=== PATIENT | male | born 1960 | race African-American/Black ===

== ENCOUNTER 2018-05-02 08:34 | Emergency (ER) | payer SELFPAY ==
[2018-05-02 08:41] VITALS: BP 132/74; PULSE 71; TEMP 97.5; BMI 35.9
--- NOTE | 2018-05-02 08:56 | PDOC ---
History of Present Illness - General Chief Complaint: Ear Problem Stated Complaint: EAR PROBLEM Time Seen by Provider: 05/02/18 08:47 History Source: Patient Exam Limitations: No Limitations - History of Present Illness Initial Comments: 05/02/18 08:51 57 yr male with right ear pain for one week. no URI symptoms, pt admits to suing ear buds and headphones frequently. no fever no sore throat no direct trauma. Past History - Past Medical History Allergies/Adverse Reactions: Allergies Allergy/AdvReac Type Severity Reaction Status Date / Time No Known Allergies Allergy Verified 05/02/18 08:36 Home Medications: Ambulatory Orders metFORMIN HCL [Metformin HCl] 500 mg PO BID 07/02/15 Acetic Acid 2% Otic Soln [Vosol 2% Ear Drops -] 3 drop AD Q6H #1 bottle COPD: No Diabetes: Yes (NIDM) - Suicide/Smoking/Psychosocial Hx Smoking History: Never smoked Have you smoked in the past 12 months: No Hx Alcohol Use: No Drug/Substance Use Hx: No Substance Use Type: None *Physical Exam - Vital Signs Last Vital Signs Temp Pulse Resp BP Pulse Ox 97.5 F L 71 16 132/74 98 05/02/18 08:36 05/02/18 08:36 05/02/18 08:36 05/02/18 08:36 05/02/18 08:36 - Physical Exam General Appearance: Yes: Nourished, Appropriately Dressed HEENT: positive: EOMI, KENY, Pharynx Normal, TM Erythema (right neg mastoid tenderness, neg painful tragus, no discharge no lymphadenopathy) Neck: positive: Supple. negative: Tender Respiratory/Chest: positive: Lungs Clear, Normal Breath Sounds. negative: Chest Tender Cardiovascular: positive: Regular Rhythm, Regular Rate Musculoskeletal: positive: Normal Inspection Extremity: positive: Normal Capillary Refill, Normal Inspection, Normal Range of Motion Integumentary: positive: Normal Color, Dry, Warm Neurologic: positive: Fully Oriented, Alert, Normal Mood/Affect, Normal Response , Motor Strength 5/5 Medical Decision Making - Medical Decision Making 05/03/18 12:19 cc: right ear pain for one week pt has history of frequent cerumen impactions no fever no sore throat right ear with excoriated external canal , mild redness, no drainage or TM perforation , some cerumen blocking the canal *DC/Admit/Observation/Transfer Diagnosis at time of Disposition: Otalgia, right ear - Discharge Dispostion Disposition: HOME Condition at time of disposition: Good - Prescriptions Prescriptions: Acetic Acid 2% Otic Soln [Vosol 2% Ear Drops -] 3 drop AD Q6H #1 bottle - Referrals Referrals: Ananda Carvajal MD [Staff Physician] - - Patient Instructions Additional Instructions: follow with the ENT doctors listed below use the drops as prescribed take ibuprofen for pain as needed - Post Discharge Activity
[2018-05-02] MEDS ORDERED: IBUPROFEN 400 MG TABLET (FP) PO ONE (08:57)
[2018-05-02] MEDS ORDERED: IBUPROFEN 600 MG TABLET (FP) PO ONE (08:57)
== END 2018-05-02 09:11 | disposition home or self-care (01) ==
LOC: JERFT 08:34
DX: H92.01 Otalgia, right ear (principal); E11.9 Type 2 diabetes mellitus without complications; Z79.84 Long term (current) use of oral hypoglycemic drugs
CPT/HCPCS: 99281-25

== ENCOUNTER 2019-01-28 18:25 | Emergency (ER) | payer OTHER ==
[2019-01-28 18:34] VITALS: BP 119/75; PULSE 66; TEMP 98.2; BMI 35.2
[2019-01-28] MEDS ORDERED: IBUPROFEN 600 MG TABLET (FP) PO ONE ×2 (19:06→19:16)
--- NOTE | 2019-01-28 19:32 | PDOC ---
History of Present Illness - General Chief Complaint: Pain, Acute Stated Complaint: PAIN Time Seen by Provider: 01/28/19 18:43 History Source: Patient Exam Limitations: No Limitations Past History - Past Medical History Allergies/Adverse Reactions: Allergies Allergy/AdvReac Type Severity Reaction Status Date / Time No Known Allergies Allergy Verified 01/28/19 18:31 Home Medications: Ambulatory Orders metFORMIN HCL [Metformin HCl] 500 mg PO BID 07/02/15 Acetic Acid 2% Otic Soln [Vosol 2% Ear Drops -] 3 drop AD Q6H #1 bottle COPD: No Diabetes: Yes (NIDM) - Suicide/Smoking/Psychosocial Hx Smoking History: Never smoked Have you smoked in the past 12 months: No Hx Alcohol Use: No Drug/Substance Use Hx: No Substance Use Type: None *Physical Exam - Vital Signs Last Vital Signs Temp Pulse Resp BP Pulse Ox 98.2 F 66 18 119/75 100 01/28/19 18:32 01/28/19 18:32 01/28/19 18:32 01/28/19 18:32 01/28/19 18:32 - Physical Exam General Appearance: No: Apparent Distress Gastrointestinal/Abdominal: positive: Normal Bowel Sounds, Soft. negative: Tender, Distended, Guarding, Rebound Musculoskeletal: negative: Decreased Range of Motion, Muscle Spasm, Vertebral Tenderness Extremity: positive: Normal Inspection, Normal Range of Motion, Other (FROM of L hip and L knee, no swelling, normal gait, no swelling or ecchymosis noted along L thigh, no skin color changes). negative: Coldness, Cyanosis Integumentary: positive: Normal Color. negative: Swelling, Ecchymosis, Bruising Neurologic: positive: Alert, Normal Mood/Affect ED Treatment Course - Medications Given in the ED: ED Medications Discontinued Medications Generic Name Dose Route Start Last Admin Trade Name Freq PRN Reason Stop Dose Admin Ibuprofen 600 mg 01/28/19 19:06 01/28/19 19:18 Motrin - PO 01/28/19 19:07 600 mg ONCE ONE Administration Medical Decision Making - Medical Decision Making 58 y/o M with hx of T2DM presents with pain along R lateral thigh x 2 weeks, worsening the past 4-5 days. Has tried Tylenol without relief. Mentions 2 weeks ago, he thinks he might have strained his thigh as he felt a tweak while trying to get out of an uncomfortable chair. Denies fever, sob, cp, abd pain, n/v, urinary complaints, groin pain, hip/knee/back pain, numbness/tingling/burning sensation. Patient with normal gait; not suspicious for fracture/arthritis/meralgia paresthetica/sciatica Likely muscular pain - given Motrin 01/28/19 19:27 *DC/Admit/Observation/Transfer Diagnosis at time of Disposition: Right thigh pain - Discharge Dispostion Disposition: HOME Condition at time of disposition: Stable Decision to Admit order: No - Referrals - Patient Instructions Additional Instructions: Thank you for choosing [facility]. It was a pleasure taking care of you. Likely this is muscular pain. You may take Motrin 600 mg every 6 hours by mouth as needed for mild to moderate pain. Take Motrin with food. Apply warm compresses Please follow-up with your doctor in 2 days for further evaluation Return to the Emergency Department if your symptoms worsen or persist, you have numbness/weakness of extremities, change in walking/unable to walk, abdominal/ groin pain, vomiting, severe back pain, change in color of extremities or other concerning symptoms. - Post Discharge Activity
== END 2019-01-28 19:38 | disposition home or self-care (01) ==
LOC: JERFT 18:25
DX: M79.651 Pain in right thigh (principal); E11.9 Type 2 diabetes mellitus without complications; Z79.84 Long term (current) use of oral hypoglycemic drugs
CPT/HCPCS: 99281-25